=== PATIENT | male | born 1950 | race Caucasian/White ===

== ENCOUNTER 2018-02-04 09:34 | Emergency (ER) | payer OTHER ==
[~2018-02-04] VITALS: Ht 175.3 cm; Wt 81.0 kg
[~2018-02-04 09:34] MED LIST: AUGM875 PO; TYLE3 PO; Z.0.NO CURRENT MEDS
[2018-02-04 09:39] VITALS: BP 199/84; PULSE 84; RESP 20; TEMP 97.8; O2SAT 96
[2018-02-04] MEDS ORDERED: TRAM50TA PO (09:45)
--- NOTE | 2018-02-04 10:09 | PD ---
HPI Chief Complaint: Injury Time Seen by Provider: 09:54 Travel History International Travel<30 days: No Contact w/Intl Traveler<30days: No Traveled to known affect area: No History of Present Illness HPI Patient is a 67-year-old male presents emergency department for evaluation of right shoulder pain and some abrasions to his left upper extremity. Patient states he was unloading groceries into his car when he tripped and fell into the car. He also states he thinks he hit his head. Denies any chest pain shortness of breath loss of consciousness dizziness. Symptoms started just prior to arrival, very localized pain in his right shoulder, denies any headache or neck pain but states that he did hit his head on the left side. States that he took a tramadol at home with significant relief PFSH Past Medical History Cancer: Yes (SQUAMOUS CELL CARCINOMA) Diminished Hearing: No Integumentary: Yes (SKIN CANCER) Past Surgical History Tonsillectomy: Yes Social History Alcohol Use: Yes (OCC GIN) Tobacco Use: Yes (1 PPD) Substance Use: No Allergies-Medications (Allergen,Severity, Reaction): Coded Allergies: No Known Allergies (Verified , 11/18/10) Reported Meds & Prescriptions Reported Meds & Active Scripts Active [place]sworth (Hydrocodone-Acetaminophen) 7.5-325 mg Tab 1 Tab PO Q6H PRN Reported Tramadol (Tramadol HCl) 50 Mg Tab 50 Mg PO Q4H PRN Review of Systems Except as stated in HPI: all other systems reviewed are Neg Physical Exam Narrative GENERAL: Well-developed well-nourished in no obvious distress peer SKIN: Focused skin assessment warm/dry. Multiple small abrasions to the left upper extremity, there is a small abrasion to left forehead, there is also some swelling about the right shoulder but there is no opening of the skin. HEAD: Atraumatic. Normocephalic. EYES: Pupils equal and round. No scleral icterus. No injection or drainage. ENT: No nasal bleeding or discharge. Mucous membranes pink and moist. NECK: Trachea midline. No JVD. CARDIOVASCULAR: Regular rate and rhythm. No murmur appreciated. RESPIRATORY: No accessory muscle use. Clear to auscultation. Breath sounds equal bilaterally. GASTROINTESTINAL: Abdomen soft, non-tender, nondistended. Hepatic and splenic margins not palpable. MUSCULOSKELETAL: No obvious deformities. No clubbing. No cyanosis. No edema. No obvious deformity of any of the extremities, no midline CT or L-spine tenderness. There is significant swelling about the proximal humeral head, pulse motor and sensory intact distally in all 4 extremities. There is some tenderness of the proximal humeral head but no tenderness on any other part of the upper or lower extremities. Elbows wrists hands hips knees ankles and feet are all atraumatic. NEUROLOGICAL: Awake and alert. No obvious cranial nerve deficits. Motor grossly within normal limits. Normal speech. PSYCHIATRIC: Appropriate mood and affect; insight and judgment normal. Data Data Last Documented VS Vital Signs Date Time Temp Pulse Resp B/P (MAP) Pulse Ox O2 Delivery O2 Flow Rate FiO2 02/04/18 09:39 97.8 84 20 199/84 (122) [address] Brain W/O Iv Contrast(Rout) (02/04/18 ) Ct Cerv Spine W/O Contrast (02/04/18 ) Humerus (Min 2vws) (02/04/18 ) Chest, Single Ap (02/04/18 ) Morphine Inj (Morphine Inj) (02/04/18 10:30) Sling And Swathe (02/04/18 ) Ed Discharge Order (02/04/18 12:20) Sling And Swathe (02/04/18 ) MDM Medical Decision Making Medical Screen Exam Complete: Yes Emergency Medical Condition: Yes Differential Diagnosis Humerus fracture, shoulder fracture, sprain, strain, neck fracture, head injury. Narrative Course Patient room to the emergency department, states his last tetanus was 2 years ago, his multiple skin abrasions/skin tears none of which require repair, they were dressed and cleaned. X-rays were obtained of his shoulder, chest, CT of her head and C-spine. Last 24 hours Impressions Humerus X-Ray 02/04/18 0000 Signed Impressions: Service Date/Time: Sunday, February 04, 2018 11:56 - CONCLUSION: Acute mildly displaced fracture involving the right proximal humeral neck. Javi Newberry MD Head CT 02/04/18 0000 Signed Impressions: Service Date/Time: Sunday, February 04, 2018 11:05 - CONCLUSION: No acute disease. Javi Newberry MD Chest X-Ray 02/04/18 0000 Signed Impressions: Service Date/Time: Sunday, February 04, 2018 12:01 - CONCLUSION: No acute cardiopulmonary disease. Javi Newberry MD Cervical Spine CT 02/04/18 0000 Signed Impressions: Service Date/Time: Sunday, February 04, 2018 11:05 - CONCLUSION: 1. No acute fracture or prevertebral soft tissue swelling. 2. Severe right neural foraminal narrowing at C3-4 and moderate right neuroforaminal narrowing at C2-3. Javi Newberry MD Patient is placed in a sling and swath discussed need follow-up with her orthopedic surgeon. Discussed symptomatic control. The patient initially declined any pain medicine but his stated that she wanted to be medicated and the patient stated that he wanted some pain medicine social morphine was given, he appeared to be in no distress on discharge. Diagnosis Primary Impression: Humerus head fracture Qualified Codes: S42.291A - Other displaced fracture of upper end of right humerus, initial encounter for closed fracture Referrals: Aleksandr Latham MD Additional Instructions: Change dressings twice a day for the next 3 days then leave open to air, use Neosporin cream or triple antibiotic ointment. Med/Other Pt SpecificInfo: Prescription(s) given Scripts Hydrocodone-Acetaminophen ([place]) 7.5-325 mg Tab 1 TAB PO Q6H Y for PAIN, #15 TAB 0 Refills Prov: Javi Greene MD 02/04/18 Disposition: 01 DISCHARGE HOME Condition: Stable Javi Greene MD Feb 04, 2018 10:09
[2018-02-04] MEDS ORDERED: MORPHINE SULFATE 8 MG/ML INJ IM ONE (10:30)
--- NOTE | 2018-02-04 11:35 | RADRPT ---
EXAM DATE/TIME: 02/04/2018 11:05 [facility] COMPARISON: No previous studies available for comparison. INDICATIONS : Tripped and fell, bruising left eye RADIATION DOSE: 31.69 CTDIvol (mGy) MEDICAL HISTORY : Skin ca SURGICAL HISTORY : None. ENCOUNTER: Initial ACUITY: 1 day PAIN SCALE: 4/10 LOCATION: Left cranial TECHNIQUE: Multiple contiguous axial images were obtained of the head. Using automated exposure control and adj ustment of the mA and/or kV according to patient size, radiation dose was kept as low as reasonably a chievable to obtain optimal diagnostic quality images. DICOM format image data is available electro nically for review and comparison. FINDINGS: CEREBRUM: The ventricles are normal for age. No evidence of midline shift, mass lesion, hemorrhage or acute in farction. No extra-axial fluid collections are seen. POSTERIOR FOSSA: The cerebellum and brainstem are intact. The 4th ventricle is midline. The cerebellopontine angle i s unremarkable. EXTRACRANIAL: The visualized portion of the orbits is intact. SKULL: The calvaria is intact. No evidence of skull fracture. CONCLUSION: No acute disease. Javi Newberry MD on February 04, 2018 at 11:32 Board Certified Radiologist. This report was verified electronically.
--- NOTE | 2018-02-04 11:39 | RADRPT ---
EXAM DATE/TIME: 02/04/2018 11:05 [facility] COMPARISON: No previous studies available for comparison. INDICATIONS : Tripped and fell. RADIATION DOSE: 18.48 CTDIvol (mGy) MEDICAL HISTORY : Skin ca SURGICAL HISTORY : None. ENCOUNTER: Initial ACUITY: 1 day PAIN SCALE: 0/10 LOCATION: neck TECHNIQUE: Volumetric scanning of the cervical spine was performed. Multiplanar reconstructions in the sagittal, coronal and oblique axial planes were performed. Using automated exposure control and adjustment o f the mA and/or kV according to patient size, radiation dose was kept as low as reasonably achievable to obtain optimal diagnostic quality images. DICOM format image data is available electronically f or review and comparison. FINDINGS: There is no acute fracture or prevertebral soft tissue swelling. Severe right neural foraminal narrow ing is noted at C3-4 and moderate right neural foraminal narrowing is noted at C2-3. Mild scoliosis o f the cervical spine is noted. There is no spinal stenosis. CONCLUSION: 1. No acute fracture or prevertebral soft tissue swelling. 2. Severe right neural foraminal narrowing at C3-4 and moderate right neuroforaminal narrowing at C2- 3. Javi Newberry MD on February 04, 2018 at 11:33 Board Certified Radiologist. This report was verified electronically.
--- NOTE | 2018-02-04 12:06 | RADRPT ---
EXAM DATE/TIME: 02/04/2018 11:56 [facility] COMPARISON: No previous studies available for comparison. INDICATIONS : Right proximal humerus pain, fell MEDICAL HISTORY : None. SURGICAL HISTORY : None. ENCOUNTER: Initial ACUITY: 2 days PAIN SCORE: 10/10 LOCATION: Right Humerus FINDINGS: There is an acute mildly displaced fracture involving the right proximal humeral neck. CONCLUSION: Acute mildly displaced fracture involving the right proximal humeral neck. Javi Newberry MD on February 04, 2018 at 12:03 Board Certified Radiologist. This report was verified electronically.
--- NOTE | 2018-02-04 12:07 | RADRPT ---
EXAM DATE/TIME: 02/04/2018 12:01 [facility] COMPARISON: No previous studies available for comparison. INDICATIONS : Right anterior chest pain, fell MEDICAL HISTORY : None. SURGICAL HISTORY : None. ENCOUNTER: Initial ACUITY: 1 day PAIN SCORE: 2/10 LOCATION: Right chest FINDINGS: A single view of the chest demonstrates the lungs to be symmetrically aerated without evidence of mas s, infiltrate or effusion. The cardiomediastinal contours are unremarkable. Acute mildly displaced f racture involving the right proximal humeral neck. CONCLUSION: No acute cardiopulmonary disease. Javi Newberry MD on February 04, 2018 at 12:04 Board Certified Radiologist. This report was verified electronically.
[2018-02-04] MEDS ORDERED: HYDR-3288 PO (12:20)
== END 2018-02-04 12:30 | disposition home or self-care (01) ==
LOC: NEPC 09:34
DX: S42.291A Other displaced fracture of upper end of right humerus, initial encounter for closed fracture (principal); S40.812A Abrasion of left upper arm, initial encounter; S00.81XA Abrasion of other part of head, initial encounter; F17.210 Nicotine dependence, cigarettes, uncomplicated; W01.0XXA Fall on same level from slipping, tripping and stumbling without subsequent striking against object, initial encounter; Y93.89 Activity, other specified; Z85.828 Personal history of other malignant neoplasm of skin; Z79.899 Other long term (current) drug therapy
CPT/HCPCS: 29240; 70450; 71045; 72125; 73060; 96372; 99284; J2270